=== PATIENT | female | born 1985 | race African-American/Black ===

== ENCOUNTER 2017-06-03 16:27 | Emergency (ER) | payer OTHER ==
[2017-06-03 16:32] VITALS: BP 130/79; PULSE 74; TEMP 98.3; BMI 29.1
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
[2017-06-03] MEDS ORDERED: IBUPROFEN 600 MG TABLET (FP) PO ONE ×2 (17:32→17:42)
== END 2017-06-03 18:42 | disposition home or self-care (01) ==
LOC: FER 16:27
DX: V49.9XXA Car occupant (driver) (passenger) injured in unspecified traffic accident, initial encounter (principal); Y93.89 Activity, other specified; Y92.410 Unspecified street and highway as the place of occurrence of the external cause
CPT/HCPCS: 72125-TC; 84703; 99281-25

== ENCOUNTER 2021-09-12 05:32 | Emergency (ER) | payer OTHER ==
[2021-09-12] MEDS ORDERED: METOCLOPRAMIDE HCL INJECTION 10 MG/2 ML VIAL IVPUSH ONE (05:49)
[2021-09-12] MEDS ORDERED: LACTATED RINGERS SOLUTION 1000 ML INFUS.BAG IV ONE (05:49)
[2021-09-12] MEDS ORDERED: METOCLOPRAMIDE HCL INJECTION 10 MG/2 ML VIAL ONE (05:55)
[2021-09-12 05:56] VITALS: BP 127/78; PULSE 92; TEMP 97.9; BMI 26.6
[2021-09-12 06:39] LABS: BASO % 0.7 % (0-2.0); EOS % 1.8 % (0-4.5); HEMATOCRIT 38.4 % (32.4-45.2); HEMOGLOBIN 12.8 GM/dL (10.7-15.3); LYMPH % 4.4 % (8-40); MCH 28.9 pg (25.7-33.7); MCHC 33.3 g/dl (32.0-36.0); MEAN CELL VOLUME 86.7 fl (80-96); MEAN PLT VOLUME 8.9 fl (7.5-11.1); MONO % 6.2 % (3.8-10.2); NEUT % 86.9 % (42.8-82.8); PLATELET COUNT 236 10^3/uL (134-434); RBC 4.42 M/mm3 (3.60-5.2); RDW 14.1 % (11.6-15.6); WHITE BLOOD COUNT 5.8 K/mm3 (4.0-10.0)
[2021-09-12] MEDS ORDERED: KETOROLAC TROMETHAMINE 30 MG/1 ML VIAL IVPUSH ONE (06:46)
[2021-09-12] MEDS ORDERED: KETOROLAC TROMETHAMINE 30 MG/1 ML VIAL ONE (06:57)
[2021-09-12 06:58] LABS: ALBUMIN 3.8 g/dl (3.4-5.0); BLOOD UREA NITROGEN 8.1 mg/dL (7-18); CALCIUM 8.9 mg/dL (8.5-10.1)
[2021-09-12 07:03] LABS: BILIRUBIN,TOTAL 0.6 mg/dL (0.2-1); TOT PROT 7.8 g/dl (6.4-8.2)
[2021-09-15 02:07] LABS: SARS-CoV-2 NAA Detected (Not Detected)
== END 2021-09-12 07:38 | disposition home or self-care (01) ==
LOC: JER 05:32
PROC: 3E033GC Introduction of Other Therapeutic Substance into Peripheral Vein, Percutaneous Approach (ICD-10-PCS; principal; 2021-09-12)
DX: R51.9 Headache, unspecified (principal); B34.9 Viral infection, unspecified
CPT/HCPCS: 36415; 80053; 85025; 87804; 99284-25; C9803; U0003; U0005

== ENCOUNTER 2024-04-19 10:42 | Emergency (ER) | payer OTHER ==
[2024-04-19 10:47] VITALS: BP 100/69; PULSE 79; RESP 18; TEMP 98.5; BMI 29.9
[2024-04-19] MEDS ORDERED: ACETAMINOPHEN INJECTION 100 ML IVPB ONE (12:26)
[2024-04-19] MEDS ORDERED: ONDANSETRON 4 MG/2 ML VIAL ONE (12:26)
[2024-04-19] MEDS: SODIUM CHLORIDE 0.9% 500 ML INFUS.BAG IV ONE (12:31)
[2024-04-19] MEDS: ACETAMINOPHEN 1000 MG/100 ML BAG IVPB ONE (12:31)
[2024-04-19] MEDS: ONDANSETRON 4 MG/2 ML VIAL IVPUSH ONE (12:31)
[2024-04-19 12:34] LABS: BASO % 0.7 % (0-2.0); EOS % 2.7 % (0-4.5); HEMOGLOBIN 12.7 GM/dL (10.7-15.3); LYMPH % 29.6 % (8-40); MCH 28.8 pg (25.7-33.7); MCHC 33.4 g/dl (32.0-36.0); MEAN CELL VOLUME 86.3 fl (80-96); MEAN PLT VOLUME 8.9 fl (7.5-11.1); MONO % 7.6 % (3.8-10.2); NEUT % 59.4 % (42.8-82.8); PLATELET COUNT 338 10^3/uL (134-434); RBC 4.41 M/mm3 (3.60-5.2); RDW 13.6 % (11.6-15.6); WHITE BLOOD COUNT 5.5 K/mm3 (4.0-10.0)
[2024-04-19 12:56] LABS: CALCIUM 9.6 mg/dL (8.5-10.1)
[2024-04-19 12:57] LABS: BLOOD UREA NITROGEN 7.8 mg/dL (7-18)
[2024-04-19 13:00] LABS: CREATININE 0.8 mg/dL (0.55-1.3)
[2024-04-19 13:02] LABS: BILIRUBIN,TOTAL 0.8 mg/dL (0.2-1)
== END 2024-04-19 13:46 | disposition home or self-care (01) ==
LOC: JER 10:42
PROC: 3E033NZ Introduction of Analgesics, Hypnotics, Sedatives into Peripheral Vein, Percutaneous Approach (ICD-10-PCS; principal; 2024-04-19)
PROC: 3E033GC Introduction of Other Therapeutic Substance into Peripheral Vein, Percutaneous Approach (ICD-10-PCS; 2024-04-19)
DX: U07.1 COVID-19 (principal); R11.2 Nausea with vomiting, unspecified; R51.9 Headache, unspecified
CPT/HCPCS: 36415; 71046-TC-FY; 80053; 84703; 85025; 99284-25; J0131